=== PATIENT | male | born 1965 | race Caucasian/White ===

== ENCOUNTER 2016-07-06 22:23 | Inpatient (IN) | payer BC, SELFPAY ==
[~2016-07-06] VITALS: Ht 172.7 cm; Wt 93.5 kg
--- NOTE | ~2016-07-06 | ECH ---
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 Summary Technically good exam. The estimated left ventricular ejection fraction is 55-60%. Mild concentric left ventricular hypertrophy. Diastolic assessment reveals Grade I diastolic dysfunction. The left atrium is mildly dilated by LA volume index measurement. Informed consent was obtained, bubble study was done, there is no evidence for a PFO or ASD. The right atrium is mildly dilated. There is mild to moderate aortic regurgitation by color Doppler. Recommendation The patient will be given the results of this study by the physician who ordered the exam. Procedure Type of Study TTE procedure:Echo Complete SF. Procedure Date Date: 07/07/2016 Start: 09:57 AM Technical Quality: Good visualization Indications:CVA and Hypertension. Appropriate Use Criteria: 9 Height: 68 inches Weight: 213 pounds BSA: 2.1 m Rhythm: NSR HR: 65 bpm BP: 150/86 mmHg M-Mode/2D Measurements LV Diastolic Dimension: 5.29 cm LV Systolic Dimension: 3.77 cm LV Septum Diastolic: 1.11 cm LV PW Diastolic: 1.13 cm AO Root Dimension: 2.66 cm Cardiac Output: 3.76 l/min LA Dimension: 3.63 cm Cardiac Index: 1.79 l/min*m RV Diastolic Dimension: 3.33 cm LA volume index: 36 ml/m LVOT: 2.07 cm LVOT VTI: 17.2 cm RV Base: 3.4 cm LV Stroke volume: 57.85 ml RV Mid: 2 cm LV Stroke volume index: 27.55 ml/m TAPSE: 2.1 cm TDI-S': 16 cm/s Doppler Measurements AV Peak Velocity: 1.2 m/s MV Peak E-Wave: 0.84 m/s AV Peak Gradient: 5.76 mmHg MV Peak A-Wave: 0.93 m/s AV Mean Gradient: 2.51 mmHg MV E/A Ratio: 0.91 LVOT Peak Velocity: 1.02 m/s MV P1/2t: 60.5 msec AV Area (Continuity):2.85 cm AV P1/2t: 583.1 msec MV Deceleration Time: 178.2 msec TR Velocity:2.38 m/s MV Area (PHT): 3.64 cm TR Gradient:22.72 mmHg PV Peak Velocity: 0.83 m/s Estimated RAP:3 mmHg PV Peak Gradient: 2.73 mmHg Estimated RVSP: 26 mmHg Estimated PASP: 25.72 mmHg E' Septal Velocity: 0.05 m/s A' Septal Velocity: 0.08 m/s E' Lateral Velocity: 0.05 m/s A' Lateral Velocity: 0.08 m/s RA Area: 17.59 cm Findings Left Ventricle The left ventricle is normal in size . Mild concentric left ventricular hypertrophy. Diastolic assessment reveals Grade I diastolic dysfunction. Right Ventricle Normal right ventricle structure and function. Left Atrium The left atrium is mildly dilated by LA volume index measurement. Informed consent was obtained, bubble study was done, there is no evidence for a PFO or ASD. Right Atrium The right atrium is mildly dilated. Mitral Valve Normal mitral valve structure and function. Trivial mitral regurgitation by color Doppler. Aortic Valve Normal aortic valve structure and function. There is mild to moderate aortic regurgitation by color Doppler. Tricuspid Valve Normal tricuspid valve structure and function. Trivial tricuspid regurgitation by color Doppler. Normal pulmonary pressures. Pulmonic Valve Normal pulmonic valve structure and function. Trivial pulmonic valve regurgitation by color Doppler. Pericardial Effusion No evidence of pericardial effusion. Miscellaneous Visualized portions of the aortic root and ascending aorta appear normal in size. Pleural Effusion No evidence of pleural effusion. Contractility Score LV regional wall motion:(0-Non visualized 1-Normal 2-Hypokinesis 3-Akinesis 4-Dyskinesis 5-Aneurysm) Signature
--- NOTE | 2016-07-10 12:05 | HP ---
ADMIT: 07/07/2016 RM/LOC: 401 [facility] MR#: [id number] [address] [facility] [address] [place], [place] [address] CON[address]TE[address] NERIS [address] [place] [address] History and Physical SEX: M AGE: 50 : 1965 DATE OF SERVICE: CHIEF COMPLAINT: Weakness and headache. HISTORY OF PRESENT ILLNESS: The patient is a 50-year-old gentleman, who reports he has a history of hypertension, who abruptly yesterday started having left-sided upper extremity weakness. Brought to the emergency room. He has not had anything similar like this in the past. Prior to this, had been in his usual state of health. No recent fevers, chills, nausea, or vomiting. He has been treated for hypertension in the past, but it sounds rather unclear whether not he is actually taking medications. He states he was last seen about 6 months ago in [facility]. Does not recall whether or not he took medication recently. He has never been hospitalized before. PAST MEDICAL HISTORY: Hypertension. MEDICATIONS: None that he knows of. FAMILY HISTORY: Mother and brother have had strokes in the past. 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 Otherwise he smokes tobacco daily. No alcohol use he reports. Lives alone. Patient originally from [place]. REVIEW OF SYSTEMS: As per HPI. Otherwise, completely reviewed and negative. ALLERGIES: NONE. PHYSICAL EXAMINATION: VITAL SIGNS: Temperature 98.3, pulse 74, respiratory rate 14, blood pressure 150/86, and O2 saturation 100% on room air. GENERAL: He is alert and oriented x3, but very tired and somewhat reluctant to chat with me. HEENT: Normocephalic. Pupils equal bilaterally. No icterus. Dry mucous membranes. NECK: No lymphadenopathy. Soft, supple. Trachea midline. LUNGS: Clear to auscultation bilaterally. No wheezes, rales, or rhonchi. HEART: Regular rate and rhythm. No murmurs, rubs, or gallops. PMI 5th intercostal space. ABDOMEN: Soft, nontender, nondistended. Bowel sounds present. EXTREMITIES: No cyanosis, clubbing, or edema. MUSCULOSKELETAL: 4/5 strength in left shoulder abduction. 4/5 strength in the left compared to right hand wheel polisher strength. He is able to raise his left arm up off the bed into the air, but he cannot do very well against resistance at all. Different than his right side for sure. 5/5 strength in bilateral lower extremities. NEUROLOGICAL: Cranial nerves II through XII grossly intact. SKIN: No rashes noted. ADMIT: 07/07/2016 RM/LOC: 401 [facility] MR#: [id number] [address] [address] NERIS ACHARYA [address] [place] [address] History and Physical SEX: M AGE: 50 : 1965 LABORATORY AND X-RAY DATA: Creatinine 1.1. Cholesterol 180, LDL is 122. HIV is negative. Alcohol level is negative. ProBNP is 797. Potassium 4.0. Hemoglobin 10.2, white blood cell count 10.6, and platelets 36,000. CT of his head initially is negative. Chest x-ray, was overall negative. EKG findings, normal overall. No acute findings. Sinus. ASSESSMENT/PLAN: 1. Acute cerebrovascular accident. 2. Thrombocytopenia. 3. Hypertension. At this point in time, we will get an MRI, echo, carotid ultrasound to look for secondary causes of stroke and further workup. In regard to thrombocytopenia, we will check some further workup B12, folate levels. Likely needs further workup with Hematology as an outpatient. For his hypertension, we will start some lisinopril, low-dose amlodipine. We will allow degree of permissive hypertension given his acute stroke. We will have therapy Services work with him. The patient is agreeable to plan at this time. Lance Mancuso MD/ regine JOB #: [id number] CC: Lance Mancuso, Attending Physician Lance Mancuso, Family Physician
--- NOTE | 2016-07-14 09:35 | DS ---
ADMIT: 07/07/2016 RM/LOC: 401 [facility] MR#: [id number] 26[address] [facility] [address] [place], [place] [address] PATRIZIA NERIS [address] [place], [place] [id number] Discharge Summary SEX: M AGE: 50 : 1965 ADMISSION DATE: 07/07/2016 DISCHARGE DATE: 07/09/2016 CONSULTATIONS: None. FINAL DIAGNOSES: 1. Acute stroke. 2. Thrombocytopenia of unclear etiology. 3. Hypertension. 4. Upper respiratory tract infection, viral. REASON FOR ADMISSION: The patient is a 50-year-old gentleman with left-sided weakness. Presented to the emergency room. [place] to have a stroke clinically. Admitted to the hospital. HOSPITAL COURSE: The patient was admitted. Neurology consult services not available. He did not get lysed in the ER. We did monitor him on telemetry without any major findings. Did have a thrombocytopenia upon admit that was improved on second day of admit. He had some sinusitis and rhinorrhea type issues. He had some neglect to his left side. Some improving weakness on his left side but still somewhat present, left upper extremity. Otherwise, he had hypertension. Medications were started. Allowed a little bit of mild permissive hypertension. He had good response to medications however. His other workup included an MRI which he would not tolerate. A little bit of the MRI they did have did show consistent with likely early ischemic changes. Clinically this fits. Otherwise, had mild carotid stenosis, not of clinical issue at this time. Overall, he was discharged to IRU for further rehab. DISCHARGE INSTRUCTIONS: Please see discharge MAR which I reviewed. Continue medications up there. He will be on antiplatelet agents and blood pressure control at time of discharge. Lance Mancuso MD/ mike JOB #: [id number] CC: Lance Mancuso MD, Attending Physician Lance Mancuso MD, Family Physician
--- NOTE | 2016-09-17 11:02 | ER ---
ADMIT: 07/07/2016 RM/LOC: 401 [facility] MR#: [id number] 26[address] [facility] [address] [place], [place] [address] PATRIZIA NERIS [address] [place] [address] Emergency Room Report SEX: M AGE: 50 : 1965 DATE: 07/07/2016 This 51-year-old gentleman comes to the Emergency Department with weakness, difficulty standing and walking, and vision loss. He said this started approximately 4 days prior, sudden in onset, moderate in nature. He is complaining of left upper and left lower extremity weakness as well as a blurry vision. He states he cannot walk as he feels off balance. He normally walks without assistance and alert and oriented. He is also complaining of a headache. He states he has had a similar episode approximately 15 years ago. REVIEW OF SYSTEMS: Otherwise negative. PAST MEDICAL HISTORY: Hypertension. SOCIAL HISTORY: He does not smoke or drink alcohol. PHYSICAL EXAM: GENERAL: Reveals a 51-year-old gentleman, who is alert in moderate amount of distress. HEENT: Head is normocephalic and atraumatic. His EOMs are intact. Pupils are equal and reactive. Airway is intact. Oral exam was unremarkable. He is alert. His cognition appears normal with normal speech. NEURO: Cranial nerves II through XII appear grossly intact. Cerebellar is unable to test in the left upper extremity. He has weakness in the left upper extremity and left lower extremity. LUNGS: Clear to auscultation. CARDIOVASCULAR: Regular rate and rhythm. ABDOMEN: Soft, nontender, positive bowel sounds. His STELLA stroke scale was 3. LABORATORY DATA: CT scan of the head revealed no acute changes. Hemoglobin 11.3, his platelets 32,000. Glucose 134, BNP is 797. The patient was admitted. DIAGNOSES: 1. Cerebrovascular accident. 2. Thrombocytopenia. Baldev Garcia MD/ regine JOB #: [id number] CC: Lance Mancuso MD, Attending Physician Lance Mancuso MD, Family Physician
== END 2016-07-09 10:26 | disposition short-term general hospital (02) | DRG 65 ==
LOC: ER 22:23 → 4PCU 07-07 00:01
PROVIDERS: ADMIT Internal Medicine
DX: I63.9 Cerebral infarction, unspecified (principal); G81.94 Hemiplegia, unspecified affecting left nondominant side; D69.6 Thrombocytopenia, unspecified; I10 Essential (primary) hypertension; F17.210 Nicotine dependence, cigarettes, uncomplicated; J32.9 Chronic sinusitis, unspecified

== ENCOUNTER 2016-07-09 10:40 | Inpatient (IN) | payer BC, SELFPAY ==
[~2016-07-09] VITALS: Ht 172.7 cm; Wt 94.5 kg
--- NOTE | 2016-07-10 21:32 | NUR ---
DAY SHIFT SUMMARY: SEE OT FIM/NOTES FOR GROOMING, SHOWER, DRESSING AND SHOWER TRANSFER; MIN ASSIST OF 1 W/ WALKER/GAIT BELT FOR TOILETING AND TRANSFERS BED/CHAIR/TOILET; MOD ASSIST OF 1 W/ GAIT BELT AND WALKER FOR SAFE AMBULATION
--- NOTE | 2016-07-13 20:48 | NUR ---
WEEKEND DAY SHIFT SUMMARY: EATING SUPERVISED/SETUP RT L VISUAL FIELD DEFICIT; GROOMING,UPPER DRESSING, TOILETING, AND TOILET TRANSFERS SUPERVISED; MIN ASSIST OF 1 FOR LOWER DRESSING AND BED TO CHAIR TRANSFERS; IS ON BOWEL RX; AMBULATES WITH MOD ASSIST OF 1 W/ GAITBELT/WALKER-NEEDS HANDS ON ASSIST AND FREQ VERBAL CUES RT L VISUAL FIELD DEFICIT
[2016-07-25] MEDS ORDERED: THERA1 EACH PO (19:29)
[2016-07-25] MEDS ORDERED: ZESTRIL DPS2.5 MG PO (19:29)
[2016-07-25] MEDS ORDERED: WELLBUTRIN SR150 M1 PO (19:30)
[2016-07-25] MEDS ORDERED: ASA325 MG PO (19:30)
[2016-07-25] MEDS ORDERED: VITAMIN D31000 UNIT PO (19:31)
[2016-07-25] MEDS ORDERED: PRAVACHOL40 MG PO (19:31)
--- NOTE | 2016-08-29 17:19 | DS ---
ADMIT: 07/09/2016 RM/LOC: 614 [facility] MR#: [id number] 2620 [facility] [address] [place], [place] [address] CON[address] [place] [address] General Discharge Summary SEX: M AGE: 50 : 1965 ADMISSION DATE: 07/09/2016 DISCHARGE DATE: 07/25/2016 DISCHARGE DIAGNOSES: Stroke 01.1, left body involvement, right brain, medial right temporal lobe ischemic, I63.9, cerebral infarction, onset 07/07/2016, comorbid conditions, per initial H and P. Other diagnoses per hospital course below. HOSPITAL COURSE: Please see my initial H and P for details prior to transfer to the IRU. Aspirin 325 mg for DVT prophylaxis. We watched the nonspecific low blood pressure readings and allowed permissive hypertension initially after the stroke. We changed p.o. Claritin to intranasal Flonase. Pain and bowel regimen adjusted. Adjusted the statin timing to help limit risk of insomnia. Lab was monitored regularly throughout course. Dietitian followed to optimize nutrition. Pharmacy followed to optimize medication management. Nicotine transdermal patch for history of 5 cigarettes per day. Bupropion SR for smoking cessation. Links to smoking cessation discharge tool kit were done. EzPAP p.r.n., inadequate incentive spirometry for atelectasis. Encouraged p.o. fluid for azotemia. Decreased Zestril due to possible prerenal acute renal failure and some nonspecific low blood pressure readings. Feosol and vitamin C given for iron deficiency, and he was anemic. Azelastine nasal spray each nostril for sinus headache and sinusitis. DuoNeb q.4 p.r.n. shortness of breath. Fioricet for headache. Astelin changed to p.r.n. Zestril decreased to 2.5 mg for continued nonspecific low blood pressure readings. Postvoid residuals were normal. MAE hose discontinued. Zestril discontinued. Flonase changed to p.r.n. Azelastine and Claritin discontinued. Vitamin D deficiency replaced with vitamin D orally. Zestril restarted due to recurrence of hypertension. Gabapentin started for left- sided neuritis. DuoNeb and Flonase discontinued as no longer necessary. Zestril decreased to 2.5 mg for nonspecific low blood pressure readings and then down to 1.25 mg for continued nonspecific low blood pressure readings. Habitrol tapered down to 7 mg and then was tapered off by discharge. Flonase restarted for sinus headache that recurred. Neurontin discontinued as was having some worsened vision and somnolence. Fecal occult blood x2 for anemia, iron deficiency. Habitrol discontinued. AST and ALT became elevated liver function tests, so Pravachol was held, and we did an ultrasound of the right upper quadrant abdomen that came back probable fatty liver. Restarted the Pravachol. Gabapentin restarted for pain and tightness in the left side. Lab was followed up on. The patient was medically stable at time of discharge. Please see IRU interdisciplinary discharge summary for details regarding ADMIT: 07/09/2016 RM/LOC: 614 [facility] MR#: [id number] [address] [place] [id number] NERIS ACHARYA [address] [facility] [address] [place] [address] General Discharge Summary SEX: M AGE: 50 : 1965 progress in therapy. DISCHARGE DISPOSITION: Home with family and friends. DISCHARGE MEDICATIONS: Please see discharge med rec. He was only on: 1. Aspirin. 2. Vitamin D. 3. Wellbutrin. 4. Zestril. I recommended taking the vitamin D for a month and then can stop. He was also on Pravachol at the time of discharge and a multivitamin. FOLLOWUP: Outpatient PT and OT in [facility] on August 05. Juan Rebolledo MD/ regine JOB #: [id number] CC:
== END 2016-07-25 11:55 | disposition home or self-care (01) | DRG 57 ==
LOC: 6IRU 10:40
PROVIDERS: ADMIT Physical Medicine & Rehabilitation
PROC: F07Z9FZ Gait Training/Functional Ambulation Treatment using Assistive, Adaptive, Supportive or Protective Equipment (ICD-10-PCS; principal; 2016-07-09)
PROC: F06ZDZZ Swallowing Dysfunction Treatment (ICD-10-PCS; principal; 2016-07-09)
PROC: F07Z5FZ Bed Mobility Treatment using Assistive, Adaptive, Supportive or Protective Equipment (ICD-10-PCS; principal; 2016-07-09)
DX: I69.391 Dysphagia following cerebral infarction (principal); D69.6 Thrombocytopenia, unspecified; R41.4 Neurologic neglect syndrome; R13.10 Dysphagia, unspecified; G62.9 Polyneuropathy, unspecified; I69.354 Hemiplegia and hemiparesis following cerebral infarction affecting left non-dominant side; J98.11 Atelectasis; I69.319 Unspecified symptoms and signs involving cognitive functions following cerebral infarction; I69.398 Other sequelae of cerebral infarction; I10 Essential (primary) hypertension; E78.5 Hyperlipidemia, unspecified; J32.9 Chronic sinusitis, unspecified; D50.9 Iron deficiency anemia, unspecified; R06.02 Shortness of breath; F17.210 Nicotine dependence, cigarettes, uncomplicated; R51 Headache; E55.9 Vitamin D deficiency, unspecified; R27.8 Other lack of coordination; J30.9 Allergic rhinitis, unspecified; H52.00 Hypermetropia, unspecified eye; R03.1 Nonspecific low blood-pressure reading